=== PATIENT | male | born 1940 | race Two or more races ===

== ENCOUNTER 2020-08-14 06:42 | Day surgery (SDC) | payer OTHER | END 2020-08-14 11:55 | disposition home or self-care (01) | LOC: AMB-ENDOS 06:42 | PROVIDERS: ATTEND Colon & Rectal Surgery | DX: C18.6 Malignant neoplasm of descending colon (principal); K64.2 Third degree hemorrhoids; Z12.11 Encounter for screening for malignant neoplasm of colon; Z20.822 Contact with and (suspected) exposure to COVID-19 ==

== ENCOUNTER 2020-09-23 12:00 | Inpatient (IN) | payer OTHER ==
[~2020-09-23] VITALS: Ht 188 cm; Wt 91.2 kg
[2020-09-23] MEDS ORDERED: ADULT LOW DOSE81 M1 PO (13:43)
[2020-09-23] MEDS ORDERED: UROXATRAL10 MG PO (13:45)
[2020-09-23] MEDS ORDERED: ATORVASTATIN CA10 MG PO (13:45)
[2020-09-23] MEDS ORDERED: FOSINOPRIL-HCT1 EACH PO (15:10)
[2020-09-23] MEDS ORDERED: AMLODIPINE BESY10 MG PO (15:10)
[2020-09-23] MEDS ORDERED: XANAX2 MG PO (15:11)
[2020-09-30] MEDS ORDERED: AMLODIPINE BESYL5 MG (10:15)
[2020-09-30] MEDS ORDERED: FOSINOPRIL SODI40 MG (10:16)
[2020-10-04] MEDS ORDERED: ULTRAM50 MG PO (10:31)
[2020-10-04] MEDS ORDERED: HYOSCYAMINE0.125 M1 SL (10:32)
[2020-10-04] MEDS ORDERED: INTESTINEX680 M1 PO (10:32)
== END 2020-10-04 12:40 | disposition home or self-care (01) | DRG 331 ==
LOC: O/R 09-30 05:28 → SURH 09-30 07:00
PROVIDERS: ADMIT Colon & Rectal Surgery; ATTEND Colon & Rectal Surgery
PROC: 0DBP4ZZ Excision of Rectum, Percutaneous Endoscopic Approach (ICD-10-PCS; 2020-09-30)
PROC: 07BD3ZX Excision of Aortic Lymphatic, Percutaneous Approach, Diagnostic (ICD-10-PCS; 2020-09-30)
PROC: 0TQB4ZZ Repair Bladder, Percutaneous Endoscopic Approach (ICD-10-PCS; 2020-09-30)
PROC: 0DJD8ZZ Inspection of Lower Intestinal Tract, Via Natural or Artificial Opening Endoscopic (ICD-10-PCS; 2020-09-30)
PROC: 0DBN4ZZ Excision of Sigmoid Colon, Percutaneous Endoscopic Approach (ICD-10-PCS; principal; 2020-09-30 07:00)
PROC: BT00ZZZ Plain Radiography of Bladder (ICD-10-PCS; 2020-10-03)
DX: C18.6 Malignant neoplasm of descending colon (principal); D50.9 Iron deficiency anemia, unspecified; I11.9 Hypertensive heart disease without heart failure; F41.9 Anxiety disorder, unspecified

== ENCOUNTER 2020-10-07 01:44 | Inpatient (IN) | payer OTHER ==
[~2020-10-07] VITALS: Ht 185.4 cm; Wt 95.3 kg
[~2020-10-07 01:44] MED LIST: ADULT LOW DOSE81 M1 PO; AMLODIPINE BESY10 MG PO; AMLODIPINE BESYL5 MG; ATORVASTATIN CA10 MG PO; FOSINOPRIL SODI40 MG; FOSINOPRIL-HCT1 EACH PO; HYOSCYAMINE0.125 M1 SL; INTESTINEX680 M1 PO; ULTRAM50 MG PO; UROXATRAL10 MG PO; XANAX2 MG PO
--- NOTE | 2020-10-07 02:10 | NUR ---
SE RECIBE PACIENTE EN AMBULANCIA DE HOS.LUIS CASTRO CARRIE DE [place]. PACIENTE ALERTA Y ORIENTADO POR SERGIO. REFIEREN DIFICULTAD RESPIRATORIA. PACIENTE POST OPERADO POR DR DONALDSON EL 16 DE POR CANCER DE COLON. PACIENTE CON IVF'S PATENTES EN BRAZO IZQ AREA [place] DE EDEMA Y/O ERITEMA BAJANDO .9NSS, EL MISMO LLEGA CANALIZADO Y CON URIBE PATENTE A GRAVEDAD CON ORINA AMARILLO JENNIFER. SE MIDEN Y DOCUMENTAN S/V. PACIENTE RECIBIDO POR DR COCHRAN, MARK ORDENA COLOCAR EN ICU #2. SE COLOCA EN CAMA #1 AREA DE ICU 2 , SE CONECTA A MONITOR CARDIACO CON SATUROMETRO. PACIENTE LLEGA CON CANULA NASAL CON OXIGENO A 3 LITROS. SE CAMBIA A OXIGENO DE PARED CON CANULA NASAL QUE CONTINUA A 3 LITROS. SE ORIENTA PACIENTE DE CONTINUIDAD DE CUIDADOS Y TRATAMIENTO EN AREA, REFIERE ENTENDER.
== END 2020-11-10 19:45 | disposition home or self-care (01) | DRG 982 ==
LOC: ER 01:44 → SURG 07:46 → SEC-K 07:46 → SURG 14:03
PROVIDERS: ADMIT Colon & Rectal Surgery; ATTEND Colon & Rectal Surgery
PROC: 0W9G30Z Drainage of Peritoneal Cavity with Drainage Device, Percutaneous Approach (ICD-10-PCS; 2020-10-07)
PROC: 5A1955Z Respiratory Ventilation, Greater than 96 Consecutive Hours (ICD-10-PCS; 2020-10-07)
PROC: 3E0F7SF Introduction of Other Gas into Respiratory Tract, Via Natural or Artificial Opening (ICD-10-PCS; 2020-10-07)
PROC: 4A12X4Z Monitoring of Cardiac Electrical Activity, External Approach (ICD-10-PCS; 2020-10-07)
PROC: 4A033R1 Measurement of Arterial Saturation, Peripheral, Percutaneous Approach (ICD-10-PCS; 2020-10-07)
PROC: 02H633Z Insertion of Infusion Device into Right Atrium, Percutaneous Approach (ICD-10-PCS; 2020-10-08)
PROC: 06H03DZ Insertion of Intraluminal Device into Inferior Vena Cava, Percutaneous Approach (ICD-10-PCS; 2020-10-17)
PROC: 30233N1 Transfusion of Nonautologous Red Blood Cells into Peripheral Vein, Percutaneous Approach (ICD-10-PCS; 2020-10-20)
PROC: 0D1B4Z4 Bypass Ileum to Cutaneous, Percutaneous Endoscopic Approach (ICD-10-PCS; principal; 2020-11-06 13:45)
DX: I26.99 Other pulmonary embolism without acute cor pulmonale (principal); K91.89 Other postprocedural complications and disorders of digestive system; K68.11 Postprocedural retroperitoneal abscess; E87.2 Acidosis; C18.6 Malignant neoplasm of descending colon; E87.0 Hyperosmolality and hypernatremia; J98.11 Atelectasis; I82.421 Acute embolism and thrombosis of right iliac vein; N17.8 Other acute kidney failure; K91.870 Postprocedural hematoma of a digestive system organ or structure following a digestive system procedure; I10 Essential (primary) hypertension; Z20.822 Contact with and (suspected) exposure to COVID-19; D50.0 Iron deficiency anemia secondary to blood loss (chronic); Y83.2 Surgical operation with anastomosis, bypass or graft as the cause of abnormal reaction of the patient, or of later complication, without mention of misadventure at the time of the procedure; E66.01 Morbid (severe) obesity due to excess calories; E86.0 Dehydration; Y83.8 Other surgical procedures as the cause of abnormal reaction of the patient, or of later complication, without mention of misadventure at the time of the procedure; Z68.27 Body mass index [BMI] 27.0-27.9, adult

== ENCOUNTER 2020-11-13 12:33 | Emergency (ER) | payer OTHER ==
[~2020-11-13] VITALS: Ht 188 cm; Wt 90.7 kg
[2020-11-13] MEDS ORDERED: LEVOFLOXACIN750 MG PO (23:03)
[2020-11-13] MEDS ORDERED: INTESTINEX680 M1 PO (23:03)
[2020-11-13] MEDS ORDERED: PYRIDIUM200 MG PO (23:03)
== END 2020-11-13 22:59 | disposition home or self-care (01) ==
LOC: ER 12:33
DX: N39.0 Urinary tract infection, site not specified (principal); E86.0 Dehydration; E87.8 Other disorders of electrolyte and fluid balance, not elsewhere classified; R53.1 Weakness; R30.0 Dysuria; R10.2 Pelvic and perineal pain; Z72.3 Lack of physical exercise

== ENCOUNTER 2020-11-17 14:02 | Inpatient (IN) | payer OTHER ==
[~2020-11-17] VITALS: Ht 188 cm; Wt 90.7 kg
[~2020-11-17 14:02] MED LIST changes: +LEVOFLOXACIN750 MG PO; +PYRIDIUM200 MG PO
[2020-11-17] MEDS ORDERED: ELIQUIS2.5 MG (14:49)
[2020-11-17] MEDS ORDERED: NORVASC5 MG (14:49)
[2020-11-17] MEDS ORDERED: INTESTINEX680 M1 (14:49)
[2020-12-14] MEDS ORDERED: TAGAMET HB200 MG (09:40)
[2020-12-14] MEDS ORDERED: GAVISCON ES TA1 EACH (09:40)
[2020-12-14] MEDS ORDERED: ST. JOSEPH ASPI81 M2 (09:40)
[2020-12-14] MEDS ORDERED: FLUOXETINE HCL20 MG (09:41)
[2020-12-14] MEDS ORDERED: ALPRAZOLAM2 MG (09:41)
[2020-12-14] MEDS ORDERED: CLONAZEPAM1 MG (09:41)
[2020-12-14] MEDS ORDERED: LITHIUM CARBON450 MG (09:41)
[2020-12-14] MEDS ORDERED: RISPERIDONE2 MG (09:41)
[2020-12-14] MEDS ORDERED: FOSINOPRIL SODI40 MG (09:42)
== END 2021-01-16 13:15 | disposition expired | DRG 862 ==
LOC: ER 14:02 → SURH 20:32 → SURG 12-23 14:01 → SURH 12-23 14:15
PROVIDERS: ADMIT Internal Medicine Geriatric Medicine; ATTEND Internal Medicine Geriatric Medicine
PROC: 02HV33Z Insertion of Infusion Device into Superior Vena Cava, Percutaneous Approach (ICD-10-PCS; 2020-11-18)
PROC: 30233N1 Transfusion of Nonautologous Red Blood Cells into Peripheral Vein, Percutaneous Approach (ICD-10-PCS; principal; 2020-11-22)
PROC: 4A033R1 Measurement of Arterial Saturation, Peripheral, Percutaneous Approach (ICD-10-PCS; 2020-11-22)
PROC: 3E0F7SF Introduction of Other Gas into Respiratory Tract, Via Natural or Artificial Opening (ICD-10-PCS; 2020-11-22)
PROC: 8E0ZXY6 Isolation (ICD-10-PCS; 2020-11-27)
PROC: 0W9G30Z Drainage of Peritoneal Cavity with Drainage Device, Percutaneous Approach (ICD-10-PCS; 2020-12-08)
PROC: 0W9B30Z Drainage of Left Pleural Cavity with Drainage Device, Percutaneous Approach (ICD-10-PCS; 2020-12-08)
PROC: 5A09557 Assistance with Respiratory Ventilation, Greater than 96 Consecutive Hours, Continuous Positive Airway Pressure (ICD-10-PCS; 2020-12-23)
PROC: 0W9B3ZZ Drainage of Left Pleural Cavity, Percutaneous Approach (ICD-10-PCS; 2021-01-01)
PROC: 4A12X4Z Monitoring of Cardiac Electrical Activity, External Approach (ICD-10-PCS; 2021-01-03)
DX: T81.43XA Infection following a procedure, organ and space surgical site, initial encounter (principal); K65.1 Peritoneal abscess; A41.9 Sepsis, unspecified organism; J96.00 Acute respiratory failure, unspecified whether with hypoxia or hypercapnia; K56.699 Other intestinal obstruction unspecified as to partial versus complete obstruction; N39.0 Urinary tract infection, site not specified; K92.1 Melena; J98.11 Atelectasis; C18.6 Malignant neoplasm of descending colon; E87.3 Alkalosis; J90 Pleural effusion, not elsewhere classified; E87.1 Hypo-osmolality and hyponatremia; N17.8 Other acute kidney failure; R18.8 Other ascites; I10 Essential (primary) hypertension; E86.0 Dehydration; Y83.6 Removal of other organ (partial) (total) as the cause of abnormal reaction of the patient, or of later complication, without mention of misadventure at the time of the procedure; Z20.822 Contact with and (suspected) exposure to COVID-19; B96.5 Pseudomonas (aeruginosa) (mallei) (pseudomallei) as the cause of diseases classified elsewhere; D50.9 Iron deficiency anemia, unspecified; I80.8 Phlebitis and thrombophlebitis of other sites; L89.312 Pressure ulcer of right buttock, stage 2